=== PATIENT | male | born 1970 | race Caucasian/White ===

== ENCOUNTER 2022-10-22 11:01 | Emergency (ER) | payer BC, OTHER ==
[2022-10-22 11:39] VITALS: BP 152/82; PULSE 76; RESP 18; TEMP 98.8; BMI 28.1
== END 2022-10-22 14:15 | disposition home or self-care (01) ==
LOC: JERFT 11:01 → JER 11:01 → JERFT 14:15
DX: G44.319 Acute post-traumatic headache, not intractable (principal)
CPT/HCPCS: 99283-25